=== PATIENT | female | born 1995 | race Caucasian/White ===

== ENCOUNTER 2019-06-13 23:42 | Emergency (ER) | payer SELFPAY ==
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
[2019-06-14 02:23] VITALS: BP 124/92
--- OUTSIDE RECORDS SUMMARY | 2019-06-17 15:22 | XMS REPORT | Continuity of Care Document ---
:1995 Author Organization [facility] Address [address] [place] [address] Phone Care Team Providers Name Role Phone Ailyn Johnson NP Unavailable Unavailable Allergies, Adverse Reactions, Alerts Substance Reaction Status No Known Allergies Active Medications Medication Instructions Dosage Effective Dates (start - stop) Status Comments No information Problems Condition Effective Dates (start - Clinical Status Comments stop) Encntr for general adult medical exam w/o abnormal findings Encounter for oth general cnsl and advice on contraception Encntr screen for infections w sexl mode of transmiss Human immunodeficiency virus [HIV] - counseling Encounter for screening for human - immunodeficiency virus Encounter for test, result negative Encounter for oth general cnsl and advice on contraception Encntr screen for infections w sexl mode of transmiss Atyp squam cell of undet signfc cyto smr crvx (ASC-US) Encntr for cerv smear to cnfrm norm smr fol init abn smear Encntr screen for infections w sexl mode of transmiss Encounter for routine checking of intrauterine contracep dev Encounter for removal of intrauterine contraceptive device Human immunodeficiency virus [HIV] - counseling Encntr screen for infections w sexl mode of transmiss Personal history of oth diseases of the female genital tract Encounter for immunization Encounter for screening for human - immunodeficiency virus Procedures Procedure Date No information Results Test Name Date and Time Measure Units Reference Range Abnormal Flag Status Comments No information Advance Directives Directive Yes / No Effective Date File Name No information Encounters Encounter Practice Location Reason(s) Diagnoses Date Provider Providers Description For Visit Copied on Encounter [facility] [place] [address], [place], [place], [address], [place], [address], [place], [place], [id number], [place] tel:[phone] [facility] Encntr for Alex Robertson. [facility] [place] general adult [address] Provider: [facility] medical exam w/o [address], [place], [place], [address], [place], [address] [place], [address] [place] [place], [id number], [address].Cons [place] ulting tel:[phone] Provider: [id number] NURSE [place] [facility] Encounter for Alex Robertson. [facility] [place] ot general cnsl [address] Provider: J Carlos and advice on [address], [place] [address], [place], [address] [place], [address] ntr screen for [place]. [address] infections w St, St, [place], sex[place] mode [place], [place], [place], [address]. [id number], immunodeficiency [place] virus [HIV] tel:[id number] for screening for human immunodeficiency virus [facility] Encounter for [facility]. [facility] [place] test, [address] Provider: J Carlos result [address], [place], [place], [address], [place], [address] [place], [address] r for oth [place]. [address] general cnsl and St, St, [place], advice on [place], [place], [place], [address]. [id number], ntr screen for [place] infections w tel:[phone] sexl mode of [id number] transmiss [facility] Atyp squam cell Nov-0 Raphbarbi [facility]erring [facility] [place] of undet signfc Stefanie. [address] Provider: J Carlos cyto smr crvx [address], [place] (ASC-US) [place], [place], [place], [address]. s, [address] tel:[phone], [place], [address] [place], [place], [address]. [id number], tel:+ [phone] tel:[phone] [facility] Encntr for cerv Alex Ailyn. [facility] [place] smear to cnfrm [address] Provider: [place] norm smr fol [address], [place], [place], [address], [place], [address] [place], [address] smearEncntr [address]. [address] Crow screen for St, St, [place], infections [place], [place], [address]. [id number], transmissEncount [place] er for routine tel:[phone] checking of [phone] intrauterine contracep devEncounter for removal of intrauterine contraceptive device [facility]di[facility]erring [facility] [place] immunodeficiency [address]. [address] Provider: [place] virus [HIV] [address], [place] counselingEncntr [place], [facility], [address] [place] [address]. s, [address] infections w tel:[phone], [place], [place], [place] [address] [place], [place], [place], [address]. [id number], l history of oth tel:[phone] [place] diseases of the [id number] tel:[phone] female genital [id number] tractEncounter for immunizationEnco unter for screening for human immunodeficiency virus Family History Family Member Diagnosis Age At Onset No information Immunizations Vaccine Date Status Comments HPV (9-valent) administered Source: New Immunization Record Payers Payer name Insurance type Covered alliance party ID Authorization(s) Johnny ESQUIVEL [facility] CI [id number] Medicaid [id number] Social History Type Description Quantity Date Captured Comments Alcohol Use Details Unknown Caffeine Use Details Unknown Tobacco Use Status Unknown Smoking Status Former smoker Sex Female Vital Signs Date / Height Weight BMI Pulse Blood Temperature Respiratory Body Head BMI Pulse Inhaled Time: Rate Pressure Rate Surface Circumference percentile Ox Ox Area No information Chief Complaint And Reason For Visit No information Reason For Referral Reason For Referral No information Plan Of Treatment Date Type Action Status No information History Of Present Illness Encounter Date Complaint History Of Present Illness No information Functional Status Date Functional Assessment No information Medications Administered Medication Instructions Dosage Effective Dates (start - stop) Status Comments No information Instructions Date Instruction Additional Information No information Assessments Type Assessment Date No information Goals Health Concern Goal Type Priority Status Date No information Medical Equipment Description Device [place] Device Identifier Effective Dates (start - stop ) Status No information Mental Status Date Cognitive Assessment No information Health Concerns Observation Date No information Concern Status Date No information
== END 2019-06-14 01:55 | disposition home or self-care (01) ==
LOC: EDBD → ED 23:42
DX: M54.9 Dorsalgia, unspecified (principal); M54.2 Cervicalgia; M25.561 Pain in right knee; V49.40XA Driver injured in collision with unspecified motor vehicles in traffic accident, initial encounter; Y92.410 Unspecified street and highway as the place of occurrence of the external cause
CPT/HCPCS: 72050; 72110; 99282